=== PATIENT | male | born 1995 | race Caucasian/White ===

== ENCOUNTER 2018-05-21 21:31 | Emergency (ER) | payer OTHER, BC ==
[~2018-05-21] VITALS: Ht 177.8 cm; Wt 77.0 kg
[2018-05-21] MEDS ORDERED: IBUPROFEN 800MG TABLET PO ONE (21:45)
[2018-05-21 22:13] VITALS: BP 114/57
== END 2018-05-21 22:21 | disposition home or self-care (01) ==
LOC: ER 21:31
DX: S93.402A Sprain of unspecified ligament of left ankle, initial encounter (principal); S93.602A Unspecified sprain of left foot, initial encounter; R03.0 Elevated blood-pressure reading, without diagnosis of hypertension; X58.XXXA Exposure to other specified factors, initial encounter; Y93.55 Activity, bike riding; Y92.89 Other specified places as the place of occurrence of the external cause
CPT/HCPCS: 29515; 73610; 73630; 99284; Z7610

== ENCOUNTER 2018-07-21 11:59 | Emergency (ER) | payer OTHER, BC ==
[~2018-07-21] VITALS: Ht 177.8 cm; Wt 78.0 kg
[2018-07-21 12:09] VITALS: BP 130/75
== END 2018-07-21 15:35 | disposition home or self-care (01) ==
LOC: ER 11:59
DX: S46.011A Strain of muscle(s) and tendon(s) of the rotator cuff of right shoulder, initial encounter (principal); X58.XXXA Exposure to other specified factors, initial encounter; Y93.51 Activity, roller skating (inline) and skateboarding; Y92.89 Other specified places as the place of occurrence of the external cause
CPT/HCPCS: 71045; 73030; 73221; 99284; A4565